=== PATIENT | female | born 1980 | race Hispanic/Latino ===

== ENCOUNTER 2018-03-17 13:33 | Emergency (ER) | payer SELFPAY ==
[2018-03-17 15:23] LABS: Bilirubin Negative (Negative); Blood, Urine Negative (Negative); Clarity CLEAR (Clear); Glucose, Urine (Dipstick) Negative (Negative); Leukocyte Trace (Negative); Nitrite Negative (Negative); Protein, Urine (Dipstick) Negative (Neg-Trace); Specific Gravity, Urine 1.019 (1.002-1.036); pH, Urine 5.5 (5.0-9.0)
[2018-03-17 15:24] LABS: Bacteria/HPF None Seen HPF (None Seen); Hyaline Casts/LPF 0-3 HYALINE CAST LPF (0-3 Hyaline); Pathc Cast-AUWi Flag 0.29 (0-2.49); RBC/HPF 0-3 HPF (0-3); Squamous Epithelial 0-3 HPF (0-3); WBC/HPF 0-3 HPF (0-3)
== END 2018-03-17 17:29 | disposition home or self-care (01) ==
LOC: ERS 13:33
DX: M54.5 Low back pain (principal); F31.9 Bipolar disorder, unspecified
CPT/HCPCS: 81003; 81015; 99283

== ENCOUNTER 2020-12-04 03:12 | Emergency (ER) | END 2020-12-04 04:10 | disposition home or self-care (01) | LOC: ERS 03:12 | DX: Z02.89 Encounter for other administrative examinations (principal); M41.9 Scoliosis, unspecified | CPT/HCPCS: 99283 ==

== ENCOUNTER 2021-07-10 19:33 | Emergency (ER) | payer SELFPAY | END 2021-07-10 23:13 | disposition left against medical advice (07) | LOC: ERS 19:33 | DX: Z53.21 Procedure and treatment not carried out due to patient leaving prior to being seen by health care provider (principal) | CPT/HCPCS: 87081; 87430 ==

== ENCOUNTER 2021-07-11 02:07 | Emergency (ER) | payer SELFPAY | END 2021-07-11 02:22 | disposition home or self-care (01) | LOC: ERS 02:07 | DX: R44.0 Auditory hallucinations (principal); Z76.0 Encounter for issue of repeat prescription | CPT/HCPCS: 99284 ==

== ENCOUNTER 2024-04-11 12:35 | Emergency (ER) | payer OTHER | END 2024-04-11 13:13 | disposition home or self-care (01) | LOC: ERS 12:35 | DX: S33.9XXA Sprain of unspecified parts of lumbar spine and pelvis, initial encounter (principal); M54.6 Pain in thoracic spine; X50.0XXA Overexertion from strenuous movement or load, initial encounter | CPT/HCPCS: 99283 ==

== ENCOUNTER 2024-06-03 07:38 | Emergency (ER) | payer OTHER | END 2024-06-03 09:29 | disposition home or self-care (01) | LOC: ERS 07:38 | DX: N39.0 Urinary tract infection, site not specified (principal) | CPT/HCPCS: 99283 ==